=== PATIENT | male | born 1990 | race Two or more races ===

== ENCOUNTER 2017-01-10 17:44 | Emergency (ER) | payer SELFPAY ==
[~2017-01-10] VITALS: Ht 170.2 cm; Wt 65.9 kg
[~2017-01-10 17:44] MED LIST: BENADRYL25 MG PO; PEPCID20 MG PO; PREDNISONE10 MG PO
[2017-01-10 18:18] VITALS: BP 133/68
[2017-01-10] MEDS ORDERED: NAPROSYN500 MG PO (22:28)
== END 2017-01-10 17:45 | disposition left against medical advice (07) ==
LOC: EME 17:44
DX: S39.92XA Unspecified injury of lower back, initial encounter (principal); Z53.21 Procedure and treatment not carried out due to patient leaving prior to being seen by health care provider

== ENCOUNTER 2017-01-10 20:34 | Emergency (ER) | payer SELFPAY ==
[~2017-01-10] VITALS: Ht 170.2 cm; Wt 65.5 kg
[2017-01-10] MEDS ORDERED: NAPROSYN500 MG PO (22:28)
[2017-01-10 22:39] VITALS: BP 114/80
== END 2017-01-10 22:40 | disposition home or self-care (01) ==
LOC: EME 20:34 → RME 20:34
DX: S20.229A Contusion of unspecified back wall of thorax, initial encounter (principal); W09.8XXA Fall on or from other playground equipment, initial encounter
CPT/HCPCS: 71020; 72070; 72100; 99281; 99284